=== PATIENT | female | born 1980 | race Two or more races ===

== ENCOUNTER 2024-05-01 00:22 | Emergency (ER) | payer OTHER, BC ==
[2024-05-01 00:31] VITALS: TEMP 97.9; BMI 29.2
[2024-05-01] MEDS ORDERED: MORPHINE SULFATE 2 MG/ML SYRINGE ONE (00:51)
[2024-05-01] MEDS ORDERED: ACETAMINOPHEN INJECTION 100 ML IVPB ONE (00:51)
[2024-05-01] MEDS ORDERED: ONDANSETRON 4 MG/2 ML VIAL ONE (00:51)
[2024-05-01] MEDS: morphine CARPU-JECT 4 MG/1 ML DISP.SYRIN IVPUSH ONE (01:00)
[2024-05-01] MEDS: SODIUM CHLORIDE 0.9% 500 ML INFUS.BAG IV ONE ×2 (01:01→05:28)
[2024-05-01] MEDS: ACETAMINOPHEN 1000 MG/100 ML BAG IVPB ONE (01:01)
[2024-05-01] MEDS: ONDANSETRON 4 MG/2 ML VIAL IVPUSH ONE (01:02)
[2024-05-01 01:11] LABS: BASO % 0.5 % (0-2.0); EOS % 0.9 % (0-4.5); HEMATOCRIT 38.6 % (32.4-45.2); HEMOGLOBIN 13.6 GM/dL (10.7-15.3); LYMPH % 43.4 % (8-40); MCH 30.3 pg (25.7-33.7); MCHC 35.2 g/dl (32.0-36.0); MEAN CELL VOLUME 86.1 fl (80-96); MEAN PLT VOLUME 8.8 fl (7.5-11.1); MONO % 4.7 % (3.8-10.2); NEUT % 50.5 % (42.8-82.8); PLATELET COUNT 318 10^3/uL (134-434); RBC 4.49 M/mm3 (3.60-5.2); WHITE BLOOD COUNT 10.2 K/mm3 (4.0-10.0)
[2024-05-01 01:27] LABS: POTASSIUM 3.2 mmol/L (3.5-5.1)
[2024-05-01 01:29] LABS: BLOOD UREA NITROGEN 14.2 mg/dL (7-18); CALCIUM 8.6 mg/dL (8.5-10.1)
[2024-05-01 01:32] LABS: CREATININE 0.8 mg/dL (0.55-1.3)
[2024-05-01 01:34] LABS: BILIRUBIN,TOTAL 0.9 mg/dL (0.2-1); TOT PROT 7.4 g/dl (6.4-8.2)
[2024-05-01 01:38] LABS: PH,URINE 7.5 (5.0-8.0); URINE APPEARANCE CLEAR; URINE BILIRUBIN NEGATIVE (NEGATIVE); URINE COLOR YELLOW; URINE GLUCOSE (UA) NEGATIVE (NEGATIVE); URINE KETONE NEGATIVE (NEGATIVE); URINE LEUK ESTERASE NEGATIVE (NEGATIVE); URINE NITRITE NEGATIVE (NEGATIVE); URINE PROTEIN NEGATIVE (NEGATIVE); URINE UROBILINOGEN 0.2 mg/dL (0.2-1.0)
[2024-05-01] MEDS ORDERED: KETOROLAC TROMETHAMINE 15 MG/ML VIAL ONE ×2 (02:12→05:15)
[2024-05-01] MEDS: KETOROLAC TROMETHAMINE 15 MG/ML VIAL IVPUSH ONE ×2 (02:15→05:32)
[2024-05-01 03:43] LABS: MAGNESIUM 2.2 mg/dL (1.8-2.4)
[2024-05-01] MEDS ORDERED: POTASSIUM CHLORIDE ORAL LIQUID 20 MEQ/15 ML ONE (04:00)
[2024-05-01] MEDS: POTASSIUM CHLORIDE ORAL LIQUID 20 MEQ/15 ML PO ONE (04:03)
[2024-05-01] MEDS ORDERED: MAGNESIUM SULFATE IN WATER 2 GM/50 ML IVPB IVPB ONE (04:16)
[2024-05-01] MEDS: MAGNESIUM SULF 50% (8.12 MEQ/2 ML-1 GM VIAL) IVPB ONE (04:22)
[2024-05-01 05:22] VITALS: BP 122/77; PULSE 88; RESP 13
[2024-05-01] MEDS: DEXTROSE 5%-NORMAL SALINE 1,000 ML IV ONE (05:33)
== END 2024-05-01 06:37 | disposition home or self-care (01) ==
LOC: JER 00:22
PROC: 3E033NZ Introduction of Analgesics, Hypnotics, Sedatives into Peripheral Vein, Percutaneous Approach (ICD-10-PCS; principal; 2024-05-01)
PROC: 3E0333Z Introduction of Anti-inflammatory into Peripheral Vein, Percutaneous Approach (ICD-10-PCS; 2024-05-01)
PROC: 3E033GC Introduction of Other Therapeutic Substance into Peripheral Vein, Percutaneous Approach (ICD-10-PCS; 2024-05-01)
PROC: 3E033NZ Introduction of Analgesics, Hypnotics, Sedatives into Peripheral Vein, Percutaneous Approach (ICD-10-PCS; 2024-05-01)
PROC: 3E033GC Introduction of Other Therapeutic Substance into Peripheral Vein, Percutaneous Approach (ICD-10-PCS; 2024-05-01)
PROC: 3E0333Z Introduction of Anti-inflammatory into Peripheral Vein, Percutaneous Approach (ICD-10-PCS; 2024-05-01)
PROC: 3E0337Z Introduction of Electrolytic and Water Balance Substance into Peripheral Vein, Percutaneous Approach (ICD-10-PCS; 2024-05-01)
DX: N13.2 Hydronephrosis with renal and ureteral calculous obstruction (principal); R00.0 Tachycardia, unspecified; R10.9 Unspecified abdominal pain; R11.0 Nausea
CPT/HCPCS: 36415; 74176-TC; 80053; 81003; 83735; 84703; 85025; 87086; 99284-25; J0131